=== PATIENT | male | born 1945 | race Caucasian/White ===

== ENCOUNTER 2019-06-23 23:17 | Inpatient (IN) | payer OTHER, MEDICAID ==
[~2019-06-23] VITALS: Ht 167.6 cm; Wt 47.6 kg
[2019-06-23 23:23] VITALS: BP_SYST 140
[2019-06-24 00:08] LABS: EOSINOPHILS % (AUTO) 0.2 % (0.0-4.0); LYMPHOCYTES # (AUTO) 0.9 K/uL (1.0-5.5); MONOCYTES # (AUTO) 0.9 K/uL (0.0-1.0)
[2019-06-24] MEDS ORDERED: LEVOFLOXACIN 500 MG/D5W 100 ML IV ONE (00:15)
[2019-06-24 00:19] LABS: BASOPHILS % (AUTO) 0.2 % (0.0-2.0); HEMATOCRIT 32.1 % (36-54); LYMPHOCYTES % (AUTO) 5.4 % (20.5-51.5); MEAN CORPUSCULAR HEMOGLOBIN 28 pg (27-31); MEAN CORPUSCULAR HGB CONC 31 % (32-36); MEAN CORPUSCULAR VOLUME 90 fL (79.0-98.0); MONOCYTES % (AUTO) 5.5 % (1.7-9.3); NEUTROPHILS # (AUTO) 14.2 K/uL (1.8-7.7); NEUTROPHILS % (AUTO) 88.7 % (40.0-70.0); PLATELET COUNT (AUTO) 468 K/uL (130-430); RED BLOOD CELL COUNT(AUTO) 3.55 MIL/uL (4.2-6.2); RED CELL DISTRIBUTION WIDTH 17.1 % (9.0-15.0)
[2019-06-24 00:21] LABS: ANION GAP 5 (5-15); CALCIUM 9.4 mg/dL (8.4-11.0); CHLORIDE 97 mmol/L (98-107); CREATININE 0.61 mg/dL (0.55-1.30); GLUCOSE 102 mg/dL (70-99); POTASSIUM 4.1 mmol/L (3.5-5.1); SODIUM SERUM 138 mmol/L (136-145); UREA NITROGEN, BLOOD 37 mg/dL (8-21)
[2019-06-24 00:28] LABS: ALANINE AMINOTRANSFERASE 16 U/L (12-78); ASPARTATE AMINOTRANSFERASE 18 U/L (10-37); TOTAL BILIRUBIN 0.3 mg/dL (0.0-1.0)
[2019-06-24 00:37] LABS: BILIRUBIN,URINE NEGATIVE (NEGATIVE); BLOOD, URINE 2+ (NEGATIVE); CLARITY/URINE SL CLOUDY (CLEAR); COLOR,URINE YELLOW (YELLOW); GLUCOSE,URINE NEGATIVE (NEGATIVE); KETONES,URINE NEGATIVE (NEGATIVE); LEUKOCYTE ESTERASE ,URINE 3+ (NEGATIVE); NITRITE, URINE POSITIVE (NEGATIVE); PH,URINE 8.5 (5.0-8.0); PROTEIN URINE 2+ (NEGATIVE)
[2019-06-24 01:01] LABS: BACTERIA,URINE MANY /HPF (None Seen); RBC,URINE 50-80 /HPF (0-3); WBC,URINE 50-80 /HPF (0-3)
[2019-06-24 01:02] LABS: TRIPLE PHOSPHATE CRYSTAL,UR 30-50 /HPF (None Seen)
[2019-06-24] MEDS ORDERED: FERR220S13 GT (02:01)
[2019-06-24] MEDS ORDERED: ASCO500T20 GT (02:02)
[2019-06-24] MEDS ORDERED: COLL100 GT (02:02)
[2019-06-24] MEDS ORDERED: LIP20 PO (02:03)
[2019-06-24] MEDS ORDERED: LANS30CA53 GT (02:04)
[2019-06-24] MEDS ORDERED: MULT-1100 GT (02:07)
[2019-06-24] MEDS ORDERED: CHOL100035 GT (02:09)
[2019-06-24] MEDS ORDERED: ZINC220T4 GT (02:09)
[2019-06-24] MEDS ORDERED: 0.45% NACL 1,000 ML IV ONE (02:15)
[2019-06-24] MEDS ORDERED: ACET-2165 GT ×2 (02:16→02:17)
[2019-06-24] MEDS ORDERED: INSU100V7 SUBCUT (02:22)
[2019-06-24] MEDS: PIPERACILLIN/TAZO 3.375 GM in NS 50 ML IV SCH ×3 (02:55→18:25)
[2019-06-24] MEDS ORDERED: VANCOMYCIN HCL 1 GM/NS PREMIX 250 ML IV ONE (03:00)
[2019-06-24] MEDS ORDERED: PIPERACILLIN/TAZOBACTAM 3.375 GM/VIAL (ZOSYN) IV ONE (03:05)
[2019-06-24] MEDS ORDERED: VANCOMYCIN HCL 1000 MG/VIAL IV ONE (03:31)
[2019-06-24 07:00] VITALS: BP_SYST 107
[2019-06-24 08:41] VITALS: BP_SYST 101
[2019-06-24 10:53] VITALS: BP_SYST 101
[2019-06-24] MEDS ORDERED: FLU VACC TS2019(65UP)/MF59C/PF 45 MCG/0.5 ML SYRINGE I.M. PRN (11:30)
[2019-06-24 12:07] VITALS: BP_SYST 118
[2019-06-24] MEDS: VANCOMYCIN HCL 1 GM/NS PREMIX 250 ML IV SCH (15:24)
[2019-06-24 16:38] VITALS: BP_SYST 114
[2019-06-24] MEDS: 0.45% NACL 1,000 ML IV SCH (19:50)
[2019-06-24] MEDS ORDERED: DEXTROSE 50% JECT 50 ML DISP.SYRIN IVP PRN (20:15)
[2019-06-24] MEDS ORDERED: GLUCOSE 15 GM GEL (in 37.5 GM TUBE) PO PRN (20:15)
[2019-06-24] MEDS ORDERED: ACETAMINOPHEN 325 MG TABLET GT PRN ×2 (20:15)
[2019-06-24] MEDS ORDERED: D5W 1,000 ML IV PRN (20:15)
[2019-06-24 20:35] VITALS: BP_SYST 103
[2019-06-24] MEDS: ASCORBIC ACID 500 MG TABLET GT SCH (20:37)
[2019-06-24] MEDS: INSULIN REGULAR, HUMAN 100 UNITS/ML, 10 ML VIAL (humuLIN R) SUBCUT PRN (20:43)
[2019-06-24] MEDS ORDERED: ATORVASTATIN 20 MG TABLET PO SCH (21:00)
[2019-06-25] MEDS: 0.45% NACL 1,000 ML IV SCH (01:30)
[2019-06-25] MEDS: PIPERACILLIN/TAZO 3.375 GM in NS 50 ML IV SCH ×3 (02:00→18:52)
[2019-06-25] MEDS: VANCOMYCIN HCL 1 GM/NS PREMIX 250 ML IV SCH ×2 (02:25→14:31)
[2019-06-25 02:39] VITALS: BP_SYST 108
[2019-06-25] MEDS: INSULIN REGULAR, HUMAN 100 UNITS/ML, 10 ML VIAL (humuLIN R) SUBCUT PRN ×2 (06:34→21:27)
[2019-06-25 07:15] LABS: BASOPHILS % (AUTO) 0.1 % (0.0-2.0); EOSINOPHILS % (AUTO) 0.2 % (0.0-4.0); HEMATOCRIT 26.5 % (36-54); HEMOGLOBIN 8.4 g/dL (14.0-18.0); LYMPHOCYTES # (AUTO) 0.8 K/uL (1.0-5.5); LYMPHOCYTES % (AUTO) 6.9 % (20.5-51.5); MEAN CORPUSCULAR HEMOGLOBIN 29 pg (27-31); MEAN CORPUSCULAR HGB CONC 32 % (32-36); MEAN CORPUSCULAR VOLUME 90 fL (79.0-98.0); MONOCYTES # (AUTO) 0.8 K/uL (0.0-1.0); MONOCYTES % (AUTO) 6.7 % (1.7-9.3); NEUTROPHILS # (AUTO) 10.4 K/uL (1.8-7.7); NEUTROPHILS % (AUTO) 86.1 % (40.0-70.0); PLATELET COUNT (AUTO) 385 K/uL (130-430); RED BLOOD CELL COUNT(AUTO) 2.95 MIL/uL (4.2-6.2); RED CELL DISTRIBUTION WIDTH 17.2 % (9.0-15.0)
[2019-06-25 07:39] LABS: ALANINE AMINOTRANSFERASE 15 U/L (12-78); ALBUMIN 1.7 g/dL (3.4-4.8); ANION GAP 5 (5-15); ASPARTATE AMINOTRANSFERASE 13 U/L (10-37); CALCIUM 8.9 mg/dL (8.4-11.0); CHLORIDE 96 mmol/L (98-107); CREATININE 0.65 mg/dL (0.55-1.30); GLUCOSE 108 mg/dL (70-99); POTASSIUM 3.5 mmol/L (3.5-5.1); SODIUM SERUM 134 mmol/L (136-145); TOTAL BILIRUBIN 0.3 mg/dL (0.0-1.0); UREA NITROGEN, BLOOD 27 mg/dL (8-21)
[2019-06-25 08:12] VITALS: BP_SYST 105
[2019-06-25] MEDS: CHOLECALCIFEROL (VITAMIN D3) 2,000 UNIT TABLET GT SCH ×2 (08:47→09:00)
[2019-06-25] MEDS: MULTIVITS,CA,MINERALS/IRON/FA 1 TABLET GT SCH ×2 (08:47→09:00)
[2019-06-25] MEDS: ASCORBIC ACID 500 MG TABLET GT SCH ×3 (08:47→21:25)
[2019-06-25] MEDS: LANSOPRAZOLE 30 MG CAPSULE.DR GT SCH ×2 (08:48→09:00)
[2019-06-25] MEDS: FERROUS SULFATE 300 MG/5 ML UDC GT SCH ×2 (08:48→09:00)
[2019-06-25] MEDS: DOCUSATE SODIUM 100 MG/10 ML UDC GT SCH ×2 (08:48→09:00)
[2019-06-25 12:44] VITALS: BP_SYST 93
[2019-06-25] MEDS: BALSAM PERU/CASTOR OIL 60 GM OINT...G. TP SCH (14:08)
[2019-06-25] MEDS ORDERED: GASTROGRAFIN 120 ML ONE (14:37)
[2019-06-25] MEDS ORDERED: GLUCOSE 15 GM GEL (in 37.5 GM TUBE) GT PRN (15:12)
[2019-06-25] MEDS ORDERED: ACETAMINOPHEN 650 MG/20.3 ML UDC GT PRN (15:12)
[2019-06-25] MEDS: NACL 0.9% 1,000 ML IV SCH (15:44)
[2019-06-25 16:00] VITALS: BP_SYST 121
[2019-06-25 18:38] LABS: BILIRUBIN,URINE NEGATIVE (NEGATIVE); BLOOD, URINE 3+ (NEGATIVE); COLOR,URINE YELLOW (YELLOW); GLUCOSE,URINE NEGATIVE (NEGATIVE); KETONES,URINE NEGATIVE (NEGATIVE); LEUKOCYTE ESTERASE ,URINE 1+ (NEGATIVE); NITRITE, URINE POSITIVE (NEGATIVE); PH,URINE 8.5 (5.0-8.0); PROTEIN URINE 1+ (NEGATIVE)
[2019-06-25 18:58] LABS: CLARITY/URINE HAZY (CLEAR)
[2019-06-25 19:04] LABS: BACTERIA,URINE MODERATE /HPF (None Seen); MUCUS,URINE None Seen /LPF (None Seen); RBC,URINE 20-50 /HPF (0-3)
[2019-06-25] MEDS ORDERED: MUPIROCIN 1 GM OIN.PF.APP NS SCH (21:00)
[2019-06-25 21:24] VITALS: BP_SYST 108
[2019-06-25] MEDS: ATORVASTATIN 20 MG TABLET GT SCH (21:25)
[2019-06-26] MEDS: PIPERACILLIN/TAZO 3.375 GM in NS 50 ML IV SCH ×3 (02:01→18:40)
[2019-06-26] MEDS: VANCOMYCIN HCL 1 GM/NS PREMIX 250 ML IV SCH (02:28)
[2019-06-26] MEDS: INSULIN REGULAR, HUMAN 100 UNITS/ML, 10 ML VIAL (humuLIN R) SUBCUT PRN (06:18)
[2019-06-26 07:10] LABS: BASOPHILS % (AUTO) 0.1 % (0.0-2.0); EOSINOPHILS # (AUTO) 0.1 K/uL (0.0-0.4); EOSINOPHILS % (AUTO) 0.5 % (0.0-4.0); HEMATOCRIT 26.5 % (36-54); HEMOGLOBIN 8.4 g/dL (14.0-18.0); LYMPHOCYTES % (AUTO) 8.5 % (20.5-51.5); MEAN CORPUSCULAR HEMOGLOBIN 28 pg (27-31); MEAN CORPUSCULAR HGB CONC 32 % (32-36); MEAN CORPUSCULAR VOLUME 90 fL (79.0-98.0); MONOCYTES # (AUTO) 0.7 K/uL (0.0-1.0); NEUTROPHILS # (AUTO) 10.3 K/uL (1.8-7.7); NEUTROPHILS % (AUTO) 84.9 % (40.0-70.0); PLATELET COUNT (AUTO) 435 K/uL (130-430); RED BLOOD CELL COUNT(AUTO) 2.96 MIL/uL (4.2-6.2); WHITE BLOOD COUNT (AUTO) 12.2 K/uL (4.8-10.8)
[2019-06-26 07:19] LABS: ALANINE AMINOTRANSFERASE 13 U/L (12-78); ALBUMIN 1.8 g/dL (3.4-4.8); ANION GAP 5 (5-15); ASPARTATE AMINOTRANSFERASE 12 U/L (10-37); CALCIUM 8.8 mg/dL (8.4-11.0); CHLORIDE 102 mmol/L (98-107); GLUCOSE 125 mg/dL (70-99); POTASSIUM 3.5 mmol/L (3.5-5.1); SODIUM SERUM 138 mmol/L (136-145); TOTAL BILIRUBIN 0.3 mg/dL (0.0-1.0); UREA NITROGEN, BLOOD 25 mg/dL (8-21)
[2019-06-26 08:06] VITALS: BP_SYST 112
[2019-06-26] MEDS: LANSOPRAZOLE 30 MG CAPSULE.DR GT SCH (08:37)
[2019-06-26] MEDS: DOCUSATE SODIUM 100 MG/10 ML UDC GT SCH (08:37)
[2019-06-26] MEDS: FERROUS SULFATE 300 MG/5 ML UDC GT SCH (08:37)
[2019-06-26] MEDS: MULTIVITS,CA,MINERALS/IRON/FA 1 TABLET GT SCH (08:37)
[2019-06-26] MEDS: ASCORBIC ACID 500 MG TABLET GT SCH ×2 (08:37→20:14)
[2019-06-26] MEDS: MUPIROCIN 2% TOPICAL OINTMENT 22 GM NS SCH ×2 (08:38→20:15)
[2019-06-26] MEDS: CHOLECALCIFEROL (VITAMIN D3) 2,000 UNIT TABLET GT SCH (08:38)
[2019-06-26] MEDS: BALSAM PERU/CASTOR OIL 60 GM OINT...G. TP SCH (08:39)
[2019-06-26 11:17] VITALS: BP_SYST 125
[2019-06-26] MEDS: NACL 0.9% 1,000 ML IV SCH ×2 (15:15→15:54)
[2019-06-26 15:25] VITALS: BP_SYST 134
[2019-06-26 20:00] VITALS: BP_SYST 130
[2019-06-26] MEDS: ATORVASTATIN 20 MG TABLET GT SCH (20:14)
[2019-06-27 00:37] VITALS: BP_SYST 135
[2019-06-27] MEDS: PIPERACILLIN/TAZO 3.375 GM in NS 50 ML IV SCH ×3 (03:00→18:16)
[2019-06-27 04:00] VITALS: BP_SYST 128
[2019-06-27] MEDS ORDERED: VANCOMYCIN HCL 750 MG in NS 250 ML IV SCH (06:00)
[2019-06-27 08:00] VITALS: BP_SYST 114
[2019-06-27] MEDS ORDERED: POLYETHYLENE GLYCOL 3350, 17 GM/ POWD.PACK GT PRN (08:00)
[2019-06-27] MEDS ORDERED: GLYCERIN 1 SUPP.RECT (ADULT) RC ONE (08:00)
[2019-06-27] MEDS ORDERED: DOCUSATE SODIUM 100 MG/10 ML UDC GT PRN (08:00)
[2019-06-27] MEDS: ASCORBIC ACID 500 MG TABLET GT SCH ×2 (09:22→22:17)
[2019-06-27] MEDS: FERROUS SULFATE 300 MG/5 ML UDC GT SCH (09:22)
[2019-06-27] MEDS: LANSOPRAZOLE 30 MG CAPSULE.DR GT SCH (09:22)
[2019-06-27] MEDS: CHOLECALCIFEROL (VITAMIN D3) 2,000 UNIT TABLET GT SCH (09:22)
[2019-06-27] MEDS: DOCUSATE SODIUM 100 MG/10 ML UDC GT SCH (09:22)
[2019-06-27] MEDS: MULTIVITS,CA,MINERALS/IRON/FA 1 TABLET GT SCH (09:22)
[2019-06-27] MEDS: MUPIROCIN 2% TOPICAL OINTMENT 22 GM NS SCH ×2 (09:23→22:17)
[2019-06-27] MEDS: BALSAM PERU/CASTOR OIL 60 GM OINT...G. TP SCH (09:23)
[2019-06-27] MEDS: VANCOMYCIN HCL 750 MG in NS 250 ML IV SCH ×2 (09:23→22:25)
[2019-06-27 12:22] VITALS: BP_SYST 140
[2019-06-27 15:07] LABS: HEPATITIS B CORE AB, TOTAL Negative (Negative); HEPATITIS B SURFACE AG Negative (Negative); HEPATITIS C VIRUS AB <0.1 s/co ratio (0.0-0.9)
[2019-06-27 16:28] VITALS: BP_SYST 127
[2019-06-27 20:00] VITALS: BP_SYST 125
[2019-06-27] MEDS: ATORVASTATIN 20 MG TABLET GT SCH (22:18)
[2019-06-28 00:02] VITALS: BP_SYST 122
[2019-06-28] MEDS: PIPERACILLIN/TAZO 3.375 GM in NS 50 ML IV SCH ×3 (02:55→18:36)
[2019-06-28 05:40] VITALS: BP_SYST 123
[2019-06-28 06:54] LABS: ALANINE AMINOTRANSFERASE 15 U/L (12-78); ALBUMIN 1.8 g/dL (3.4-4.8); ANION GAP 6 (5-15); ASPARTATE AMINOTRANSFERASE 16 U/L (10-37); CALCIUM 8.7 mg/dL (8.4-11.0); CHLORIDE 116 mmol/L (98-107); GLUCOSE 108 mg/dL (70-99); POTASSIUM 3.7 mmol/L (3.5-5.1); SODIUM SERUM 154 mmol/L (136-145); TOTAL BILIRUBIN 0.2 mg/dL (0.0-1.0); UREA NITROGEN, BLOOD 34 mg/dL (8-21)
[2019-06-28 07:11] LABS: BASOPHILS % (AUTO) 0.3 % (0.0-2.0); EOSINOPHILS # (AUTO) 0.1 K/uL (0.0-0.4); EOSINOPHILS % (AUTO) 0.9 % (0.0-4.0); HEMATOCRIT 27.3 % (36-54); HEMOGLOBIN 8.5 g/dL (14.0-18.0); LYMPHOCYTES # (AUTO) 1.3 K/uL (1.0-5.5); LYMPHOCYTES % (AUTO) 8.6 % (20.5-51.5); MEAN CORPUSCULAR HEMOGLOBIN 29 pg (27-31); MEAN CORPUSCULAR HGB CONC 31 % (32-36); MEAN CORPUSCULAR VOLUME 92 fL (79.0-98.0); MONOCYTES # (AUTO) 0.8 K/uL (0.0-1.0); MONOCYTES % (AUTO) 5.4 % (1.7-9.3); NEUTROPHILS # (AUTO) 12.9 K/uL (1.8-7.7); NEUTROPHILS % (AUTO) 84.8 % (40.0-70.0); PLATELET COUNT (AUTO) 413 K/uL (130-430); RED BLOOD CELL COUNT(AUTO) 2.98 MIL/uL (4.2-6.2); RED CELL DISTRIBUTION WIDTH 17.5 % (9.0-15.0); WHITE BLOOD COUNT (AUTO) 15.2 K/uL (4.8-10.8)
[2019-06-28 08:00] VITALS: BP_SYST 112
[2019-06-28] MEDS: LANSOPRAZOLE 30 MG CAPSULE.DR GT SCH (08:56)
[2019-06-28] MEDS: DOCUSATE SODIUM 100 MG/10 ML UDC GT SCH (08:56)
[2019-06-28] MEDS: FERROUS SULFATE 300 MG/5 ML UDC GT SCH (08:56)
[2019-06-28] MEDS: CHOLECALCIFEROL (VITAMIN D3) 2,000 UNIT TABLET GT SCH (08:57)
[2019-06-28] MEDS: ASCORBIC ACID 500 MG TABLET GT SCH ×2 (08:57→22:27)
[2019-06-28] MEDS: MULTIVITS,CA,MINERALS/IRON/FA 1 TABLET GT SCH (08:57)
[2019-06-28] MEDS: D5W 1,000 ML IV SCH (08:59)
[2019-06-28] MEDS: BALSAM PERU/CASTOR OIL 60 GM OINT...G. TP SCH (09:23)
[2019-06-28] MEDS: MUPIROCIN 2% TOPICAL OINTMENT 22 GM NS SCH ×2 (09:24→22:28)
[2019-06-28] MEDS: VANCOMYCIN HCL 750 MG in NS 250 ML IV SCH ×2 (09:24→22:28)
[2019-06-28 12:31] VITALS: BP_SYST 154
[2019-06-28 16:41] VITALS: BP_SYST 147
[2019-06-28 20:30] VITALS: BP_SYST 104
[2019-06-28] MEDS: ATORVASTATIN 20 MG TABLET GT SCH (22:27)
[2019-06-29 01:26] VITALS: BP_SYST 147
[2019-06-29] MEDS: PIPERACILLIN/TAZO 3.375 GM in NS 50 ML IV SCH ×3 (03:27→18:04)
[2019-06-29] MEDS ORDERED: AMIKACIN SULFATE 1,000 MG in D5W 100 ML IV ONE (04:00)
[2019-06-29] MEDS ORDERED: AMIKACIN SULFATE 500 MG/2 ML VIAL ONE (06:14)
[2019-06-29] MEDS: D5W 1,000 ML IV SCH (06:30)
[2019-06-29 08:07] LABS: BASOPHILS % (AUTO) 0.1 % (0.0-2.0); EOSINOPHILS # (AUTO) 0.2 K/uL (0.0-0.4); EOSINOPHILS % (AUTO) 1.4 % (0.0-4.0); HEMATOCRIT 27.7 % (36-54); HEMOGLOBIN 8.5 g/dL (14.0-18.0); LYMPHOCYTES # (AUTO) 1.2 K/uL (1.0-5.5); LYMPHOCYTES % (AUTO) 9.3 % (20.5-51.5); MEAN CORPUSCULAR HEMOGLOBIN 28 pg (27-31); MEAN CORPUSCULAR HGB CONC 31 % (32-36); MEAN CORPUSCULAR VOLUME 93 fL (79.0-98.0); MONOCYTES # (AUTO) 0.5 K/uL (0.0-1.0); MONOCYTES % (AUTO) 4.3 % (1.7-9.3); NEUTROPHILS # (AUTO) 10.7 K/uL (1.8-7.7); NEUTROPHILS % (AUTO) 84.9 % (40.0-70.0); PLATELET COUNT (AUTO) 401 K/uL (130-430); RED BLOOD CELL COUNT(AUTO) 2.98 MIL/uL (4.2-6.2); RED CELL DISTRIBUTION WIDTH 17.7 % (9.0-15.0); WHITE BLOOD COUNT (AUTO) 12.6 K/uL (4.8-10.8)
[2019-06-29 08:13] VITALS: BP_SYST 125
[2019-06-29 08:26] LABS: ANION GAP 5 (5-15); CALCIUM 8.9 mg/dL (8.4-11.0); CHLORIDE 115 mmol/L (98-107); CREATININE 0.79 mg/dL (0.55-1.30); GLUCOSE 134 mg/dL (70-99); POTASSIUM 3.9 mmol/L (3.5-5.1); SODIUM SERUM 148 mmol/L (136-145); UREA NITROGEN, BLOOD 40 mg/dL (8-21); VANCOMYCIN,TROUGH 23.8 ug/mL (5.0-10.0)
[2019-06-29] MEDS: DOCUSATE SODIUM 100 MG/10 ML UDC GT SCH (09:33)
[2019-06-29] MEDS: FERROUS SULFATE 300 MG/5 ML UDC GT SCH (09:33)
[2019-06-29] MEDS: ASCORBIC ACID 500 MG TABLET GT SCH ×2 (09:33→21:04)
[2019-06-29] MEDS: VANCOMYCIN HCL 750 MG in NS 250 ML IV SCH ×2 (09:33→21:03)
[2019-06-29] MEDS: MULTIVITS,CA,MINERALS/IRON/FA 1 TABLET GT SCH (09:33)
[2019-06-29] MEDS: MUPIROCIN 2% TOPICAL OINTMENT 22 GM NS SCH ×2 (09:34→21:05)
[2019-06-29] MEDS: LANSOPRAZOLE 30 MG CAPSULE.DR GT SCH (09:34)
[2019-06-29] MEDS: CHOLECALCIFEROL (VITAMIN D3) 2,000 UNIT TABLET GT SCH (09:34)
[2019-06-29 12:15] VITALS: BP_SYST 117
[2019-06-29] MEDS: BALSAM PERU/CASTOR OIL 60 GM OINT...G. TP SCH (15:30)
[2019-06-29 17:02] VITALS: BP_SYST 140
[2019-06-29 20:00] VITALS: BP_SYST 120
[2019-06-29] MEDS: ATORVASTATIN 20 MG TABLET GT SCH (21:03)
[2019-06-30 00:29] VITALS: BP_SYST 113
[2019-06-30] MEDS: D5W 1,000 ML IV SCH ×3 (00:41→17:50)
[2019-06-30 06:31] LABS: BASOPHILS # (AUTO) 0.1 K/uL (0.0-0.2); BASOPHILS % (AUTO) 0.5 % (0.0-2.0); EOSINOPHILS # (AUTO) 0.2 K/uL (0.0-0.4); EOSINOPHILS % (AUTO) 1.6 % (0.0-4.0); HEMATOCRIT 27.4 % (36-54); HEMOGLOBIN 8.5 g/dL (14.0-18.0); LYMPHOCYTES # (AUTO) 1.2 K/uL (1.0-5.5); LYMPHOCYTES % (AUTO) 8.7 % (20.5-51.5); MEAN CORPUSCULAR HEMOGLOBIN 29 pg (27-31); MEAN CORPUSCULAR HGB CONC 31 % (32-36); MEAN CORPUSCULAR VOLUME 92 fL (79.0-98.0); MONOCYTES # (AUTO) 0.6 K/uL (0.0-1.0); MONOCYTES % (AUTO) 4.1 % (1.7-9.3); NEUTROPHILS # (AUTO) 11.5 K/uL (1.8-7.7); NEUTROPHILS % (AUTO) 85.1 % (40.0-70.0); PLATELET COUNT (AUTO) 408 K/uL (130-430); RED BLOOD CELL COUNT(AUTO) 2.98 MIL/uL (4.2-6.2); RED CELL DISTRIBUTION WIDTH 17.4 % (9.0-15.0); WHITE BLOOD COUNT (AUTO) 13.5 K/uL (4.8-10.8)
[2019-06-30 06:59] LABS: ALANINE AMINOTRANSFERASE 19 U/L (12-78); ALBUMIN 1.9 g/dL (3.4-4.8); ANION GAP 7 (5-15); ASPARTATE AMINOTRANSFERASE 22 U/L (10-37); CALCIUM 8.5 mg/dL (8.4-11.0); CHLORIDE 114 mmol/L (98-107); CREATININE 0.71 mg/dL (0.55-1.30); GLUCOSE 109 mg/dL (70-99); POTASSIUM 3.8 mmol/L (3.5-5.1); SODIUM SERUM 151 mmol/L (136-145); TOTAL BILIRUBIN 0.3 mg/dL (0.0-1.0); UREA NITROGEN, BLOOD 41 mg/dL (8-21)
[2019-06-30] MEDS: AMIKACIN SULFATE 350 MG in D5W 100 ML IV SCH ×2 (08:57→20:08)
[2019-06-30] MEDS: FERROUS SULFATE 300 MG/5 ML UDC GT SCH (09:34)
[2019-06-30] MEDS: LANSOPRAZOLE 30 MG CAPSULE.DR GT SCH (09:34)
[2019-06-30] MEDS: DOCUSATE SODIUM 100 MG/10 ML UDC GT SCH (09:34)
[2019-06-30] MEDS: MULTIVITS,CA,MINERALS/IRON/FA 1 TABLET GT SCH (09:34)
[2019-06-30] MEDS: ASCORBIC ACID 500 MG TABLET GT SCH ×2 (09:34→20:12)
[2019-06-30 09:35] VITALS: BP_SYST 115
[2019-06-30] MEDS: CHOLECALCIFEROL (VITAMIN D3) 2,000 UNIT TABLET GT SCH (09:35)
[2019-06-30] MEDS: MUPIROCIN 2% TOPICAL OINTMENT 22 GM NS SCH ×2 (11:39→20:13)
[2019-06-30 12:39] VITALS: BP_SYST 103
[2019-06-30] MEDS: BALSAM PERU/CASTOR OIL 60 GM OINT...G. TP SCH (15:58)
[2019-06-30 16:43] VITALS: BP_SYST 109
[2019-06-30] MEDS: VANCOMYCIN HCL 500 MG in NS 100 ML IV SCH (17:41)
[2019-06-30 19:30] VITALS: BP_SYST 126
[2019-06-30] MEDS: ATORVASTATIN 20 MG TABLET GT SCH (20:12)
[2019-07-01] MEDS: D5W 1,000 ML IV SCH ×2 (02:22→17:36)
[2019-07-01 03:37] VITALS: BP_SYST 120
[2019-07-01] MEDS: VANCOMYCIN HCL 500 MG in NS 100 ML IV SCH ×2 (05:56→17:16)
[2019-07-01 06:25] LABS: BASOPHILS # (AUTO) 0.1 K/uL (0.0-0.2); BASOPHILS % (AUTO) 0.6 % (0.0-2.0); EOSINOPHILS # (AUTO) 0.2 K/uL (0.0-0.4); EOSINOPHILS % (AUTO) 2.1 % (0.0-4.0); HEMATOCRIT 24.9 % (36-54); HEMOGLOBIN 7.8 g/dL (14.0-18.0); LYMPHOCYTES # (AUTO) 1.2 K/uL (1.0-5.5); LYMPHOCYTES % (AUTO) 10.4 % (20.5-51.5); MEAN CORPUSCULAR HEMOGLOBIN 28 pg (27-31); MEAN CORPUSCULAR HGB CONC 31 % (32-36); MEAN CORPUSCULAR VOLUME 90 fL (79.0-98.0); MONOCYTES # (AUTO) 0.4 K/uL (0.0-1.0); NEUTROPHILS # (AUTO) 9.2 K/uL (1.8-7.7); NEUTROPHILS % (AUTO) 82.9 % (40.0-70.0); PLATELET COUNT (AUTO) 338 K/uL (130-430); RED BLOOD CELL COUNT(AUTO) 2.76 MIL/uL (4.2-6.2); RED CELL DISTRIBUTION WIDTH 17.2 % (9.0-15.0); WHITE BLOOD COUNT (AUTO) 11.1 K/uL (4.8-10.8)
[2019-07-01 06:33] LABS: ANION GAP 4 (5-15); CALCIUM 8.6 mg/dL (8.4-11.0); CHLORIDE 108 mmol/L (98-107); CREATININE 0.62 mg/dL (0.55-1.30); GLUCOSE 114 mg/dL (70-99); POTASSIUM 3.7 mmol/L (3.5-5.1); SODIUM SERUM 139 mmol/L (136-145); UREA NITROGEN, BLOOD 42 mg/dL (8-21)
[2019-07-01 08:03] VITALS: BP_SYST 104
[2019-07-01] MEDS: AMIKACIN SULFATE 350 MG in D5W 100 ML IV SCH ×2 (08:22→20:33)
[2019-07-01] MEDS: MULTIVITS,CA,MINERALS/IRON/FA 1 TABLET GT SCH (08:22)
[2019-07-01] MEDS: ASCORBIC ACID 500 MG TABLET GT SCH ×2 (08:22→20:33)
[2019-07-01] MEDS: LANSOPRAZOLE 30 MG CAPSULE.DR GT SCH (08:23)
[2019-07-01] MEDS: FERROUS SULFATE 300 MG/5 ML UDC GT SCH (08:23)
[2019-07-01] MEDS: DOCUSATE SODIUM 100 MG/10 ML UDC GT SCH (08:23)
[2019-07-01] MEDS: CHOLECALCIFEROL (VITAMIN D3) 2,000 UNIT TABLET GT SCH (08:23)
[2019-07-01] MEDS: BALSAM PERU/CASTOR OIL 60 GM OINT...G. TP SCH (08:24)
[2019-07-01 12:37] VITALS: BP_SYST 109
[2019-07-01 17:34] VITALS: BP_SYST 105
[2019-07-01 19:25] VITALS: BP_SYST 126
[2019-07-01 19:50] VITALS: BP_SYST 126
[2019-07-01] MEDS: ATORVASTATIN 20 MG TABLET GT SCH (20:33)
[2019-07-02] MEDS: D5W 1,000 ML IV SCH (02:34)
[2019-07-02 03:32] VITALS: BP_SYST 120
[2019-07-02] MEDS: VANCOMYCIN HCL 500 MG in NS 100 ML IV SCH ×2 (06:23→17:30)
[2019-07-02 07:17] LABS: BASOPHILS # (AUTO) 0.1 K/uL (0.0-0.2); BASOPHILS % (AUTO) 0.8 % (0.0-2.0); EOSINOPHILS # (AUTO) 0.2 K/uL (0.0-0.4); EOSINOPHILS % (AUTO) 2.5 % (0.0-4.0); HEMATOCRIT 25.1 % (36-54); HEMOGLOBIN 7.9 g/dL (14.0-18.0); LYMPHOCYTES # (AUTO) 1.1 K/uL (1.0-5.5); LYMPHOCYTES % (AUTO) 12.1 % (20.5-51.5); MEAN CORPUSCULAR HEMOGLOBIN 28 pg (27-31); MEAN CORPUSCULAR HGB CONC 32 % (32-36); MEAN CORPUSCULAR VOLUME 90 fL (79.0-98.0); MONOCYTES # (AUTO) 0.6 K/uL (0.0-1.0); NEUTROPHILS # (AUTO) 7.3 K/uL (1.8-7.7); NEUTROPHILS % (AUTO) 78.6 % (40.0-70.0); PLATELET COUNT (AUTO) 321 K/uL (130-430); RED BLOOD CELL COUNT(AUTO) 2.79 MIL/uL (4.2-6.2); WHITE BLOOD COUNT (AUTO) 9.3 K/uL (4.8-10.8)
[2019-07-02 07:43] LABS: ALANINE AMINOTRANSFERASE 27 U/L (12-78); ALBUMIN 1.7 g/dL (3.4-4.8); ANION GAP 7 (5-15); ASPARTATE AMINOTRANSFERASE 22 U/L (10-37); CALCIUM 8.3 mg/dL (8.4-11.0); CHLORIDE 106 mmol/L (98-107); GLUCOSE 100 mg/dL (70-99); POTASSIUM 3.9 mmol/L (3.5-5.1); SODIUM SERUM 141 mmol/L (136-145); TOTAL BILIRUBIN 0.2 mg/dL (0.0-1.0); UREA NITROGEN, BLOOD 42 mg/dL (8-21)
[2019-07-02 08:00] VITALS: BP_SYST 120
[2019-07-02] MEDS: MULTIVITS,CA,MINERALS/IRON/FA 1 TABLET GT SCH (08:40)
[2019-07-02] MEDS: ASCORBIC ACID 500 MG TABLET GT SCH ×2 (08:40→21:37)
[2019-07-02] MEDS: LANSOPRAZOLE 30 MG CAPSULE.DR GT SCH (08:41)
[2019-07-02] MEDS: DOCUSATE SODIUM 100 MG/10 ML UDC GT SCH (08:41)
[2019-07-02] MEDS: CHOLECALCIFEROL (VITAMIN D3) 2,000 UNIT TABLET GT SCH (08:41)
[2019-07-02] MEDS: FERROUS SULFATE 300 MG/5 ML UDC GT SCH (08:42)
[2019-07-02] MEDS: AMIKACIN SULFATE 350 MG in D5W 100 ML IV SCH ×2 (08:42→21:34)
[2019-07-02 12:00] VITALS: BP_SYST 114
[2019-07-02 12:13] LABS: PROTHROMBIN TIME 10.2 SECS (9.5-12.5)
[2019-07-02] MEDS: BALSAM PERU/CASTOR OIL 60 GM OINT...G. TP SCH (15:00)
[2019-07-02 16:53] VITALS: BP_SYST 100
[2019-07-02 20:00] VITALS: BP_SYST 125
[2019-07-02] MEDS: ATORVASTATIN 20 MG TABLET GT SCH (21:37)
[2019-07-03 00:38] VITALS: BP_SYST 126
[2019-07-03] MEDS: VANCOMYCIN HCL 500 MG in NS 100 ML IV SCH ×2 (05:54→18:00)
[2019-07-03 08:00] VITALS: BP_SYST 106
[2019-07-03 08:49] VITALS: BP_SYST 126
[2019-07-03] MEDS: DOCUSATE SODIUM 100 MG/10 ML UDC GT SCH (09:55)
[2019-07-03] MEDS: LANSOPRAZOLE 30 MG CAPSULE.DR GT SCH (09:55)
[2019-07-03] MEDS: FERROUS SULFATE 300 MG/5 ML UDC GT SCH (09:55)
[2019-07-03] MEDS: ASCORBIC ACID 500 MG TABLET GT SCH ×2 (09:55→21:47)
[2019-07-03] MEDS: AMIKACIN SULFATE 350 MG in D5W 100 ML IV SCH ×2 (09:55→20:00)
[2019-07-03] MEDS: MULTIVITS,CA,MINERALS/IRON/FA 1 TABLET GT SCH (09:55)
[2019-07-03] MEDS: CHOLECALCIFEROL (VITAMIN D3) 2,000 UNIT TABLET GT SCH (09:56)
[2019-07-03] MEDS: BALSAM PERU/CASTOR OIL 60 GM OINT...G. TP SCH (09:56)
[2019-07-03 12:22] VITALS: BP_SYST 127
[2019-07-03 16:10] VITALS: BP_SYST 112
[2019-07-03] MEDS: D5W 1,000 ML IV SCH (17:43)
[2019-07-03] MEDS ORDERED: VANCOMYCIN HCL 500 MG/VIAL IV ONE (20:35)
[2019-07-03] MEDS: ATORVASTATIN 20 MG TABLET GT SCH (21:47)
[2019-07-03] MEDS ORDERED: AMIKACIN SULFATE 500 MG/2 ML VIAL ONE (22:43)
[2019-07-04 00:37] VITALS: BP_SYST 133
[2019-07-04] MEDS: VANCOMYCIN HCL 500 MG in NS 100 ML IV SCH ×2 (06:04→17:47)
[2019-07-04] MEDS: INSULIN REGULAR, HUMAN 100 UNITS/ML, 10 ML VIAL (humuLIN R) SUBCUT PRN (06:08)
[2019-07-04 07:10] LABS: BASOPHILS # (AUTO) 0.1 K/uL (0.0-0.2); BASOPHILS % (AUTO) 0.9 % (0.0-2.0); EOSINOPHILS # (AUTO) 0.2 K/uL (0.0-0.4); EOSINOPHILS % (AUTO) 2.2 % (0.0-4.0); HEMATOCRIT 23.8 % (36-54); HEMOGLOBIN 7.7 g/dL (14.0-18.0); LYMPHOCYTES # (AUTO) 0.9 K/uL (1.0-5.5); LYMPHOCYTES % (AUTO) 11.5 % (20.5-51.5); MEAN CORPUSCULAR HEMOGLOBIN 29 pg (27-31); MEAN CORPUSCULAR HGB CONC 32 % (32-36); MEAN CORPUSCULAR VOLUME 90 fL (79.0-98.0); MONOCYTES # (AUTO) 0.5 K/uL (0.0-1.0); MONOCYTES % (AUTO) 6.6 % (1.7-9.3); NEUTROPHILS # (AUTO) 5.9 K/uL (1.8-7.7); NEUTROPHILS % (AUTO) 78.8 % (40.0-70.0); PLATELET COUNT (AUTO) 321 K/uL (130-430); RED BLOOD CELL COUNT(AUTO) 2.66 MIL/uL (4.2-6.2); RED CELL DISTRIBUTION WIDTH 17.3 % (9.0-15.0); WHITE BLOOD COUNT (AUTO) 7.5 K/uL (4.8-10.8)
[2019-07-04 07:41] LABS: ALANINE AMINOTRANSFERASE 23 U/L (12-78); ALBUMIN 1.7 g/dL (3.4-4.8); ANION GAP 6 (5-15); ASPARTATE AMINOTRANSFERASE 23 U/L (10-37); CALCIUM 8.4 mg/dL (8.4-11.0); CHLORIDE 103 mmol/L (98-107); CREATININE 0.63 mg/dL (0.55-1.30); GLUCOSE 101 mg/dL (70-99); POTASSIUM 4.2 mmol/L (3.5-5.1); SODIUM SERUM 138 mmol/L (136-145); TOTAL BILIRUBIN 0.2 mg/dL (0.0-1.0); UREA NITROGEN, BLOOD 30 mg/dL (8-21)
[2019-07-04 08:21] VITALS: BP_SYST 113
[2019-07-04] MEDS: DOCUSATE SODIUM 100 MG/10 ML UDC GT SCH (10:27)
[2019-07-04] MEDS: FERROUS SULFATE 300 MG/5 ML UDC GT SCH (10:27)
[2019-07-04] MEDS: LANSOPRAZOLE 30 MG CAPSULE.DR GT SCH (10:28)
[2019-07-04] MEDS: CHOLECALCIFEROL (VITAMIN D3) 2,000 UNIT TABLET GT SCH (10:28)
[2019-07-04] MEDS: MULTIVITS,CA,MINERALS/IRON/FA 1 TABLET GT SCH (10:28)
[2019-07-04] MEDS: ASCORBIC ACID 500 MG TABLET GT SCH ×2 (10:28→20:17)
[2019-07-04] MEDS: AMIKACIN SULFATE 350 MG in D5W 100 ML IV SCH ×2 (10:29→20:17)
[2019-07-04] MEDS: BALSAM PERU/CASTOR OIL 60 GM OINT...G. TP SCH (10:33)
[2019-07-04 16:30] VITALS: BP_SYST 109
[2019-07-04] MEDS: D5W 1,000 ML IV SCH (17:58)
[2019-07-04 20:00] VITALS: BP_SYST 103
[2019-07-04] MEDS: ATORVASTATIN 20 MG TABLET GT SCH (20:17)
[2019-07-04 23:24] VITALS: BP_SYST 115
[2019-07-05] MEDS: VANCOMYCIN HCL 500 MG in NS 100 ML IV SCH ×2 (06:04→18:06)
[2019-07-05 08:12] VITALS: BP_SYST 169
[2019-07-05] MEDS: ASCORBIC ACID 500 MG TABLET GT SCH ×2 (09:25→20:53)
[2019-07-05] MEDS: CHOLECALCIFEROL (VITAMIN D3) 2,000 UNIT TABLET GT SCH (09:25)
[2019-07-05] MEDS: FERROUS SULFATE 300 MG/5 ML UDC GT SCH (09:25)
[2019-07-05] MEDS: AMIKACIN SULFATE 350 MG in D5W 100 ML IV SCH ×2 (09:25→20:52)
[2019-07-05] MEDS: LANSOPRAZOLE 30 MG CAPSULE.DR GT SCH (09:26)
[2019-07-05] MEDS: DOCUSATE SODIUM 100 MG/10 ML UDC GT SCH (09:26)
[2019-07-05] MEDS: MULTIVITS,CA,MINERALS/IRON/FA 1 TABLET GT SCH (09:26)
[2019-07-05] MEDS: BALSAM PERU/CASTOR OIL 60 GM OINT...G. TP SCH (09:44)
[2019-07-05 12:00] VITALS: BP_SYST 99
[2019-07-05] MEDS: INSULIN REGULAR, HUMAN 100 UNITS/ML, 10 ML VIAL (humuLIN R) SUBCUT PRN ×2 (13:02→16:40)
[2019-07-05] MEDS: D5W 1,000 ML IV SCH (16:34)
[2019-07-05 16:35] VITALS: BP_SYST 122
[2019-07-05 20:46] VITALS: BP_SYST 120
[2019-07-05] MEDS: ATORVASTATIN 20 MG TABLET GT SCH (20:53)
[2019-07-06 00:21] VITALS: BP_SYST 116
[2019-07-06] MEDS: VANCOMYCIN HCL 500 MG in NS 100 ML IV SCH ×2 (06:20→19:32)
[2019-07-06] MEDS: LANSOPRAZOLE 30 MG CAPSULE.DR GT SCH (09:35)
[2019-07-06] MEDS: FERROUS SULFATE 300 MG/5 ML UDC GT SCH (09:35)
[2019-07-06] MEDS: DOCUSATE SODIUM 100 MG/10 ML UDC GT SCH (09:35)
[2019-07-06] MEDS: MULTIVITS,CA,MINERALS/IRON/FA 1 TABLET GT SCH (09:35)
[2019-07-06] MEDS: ASCORBIC ACID 500 MG TABLET GT SCH ×2 (09:35→21:49)
[2019-07-06] MEDS: CHOLECALCIFEROL (VITAMIN D3) 2,000 UNIT TABLET GT SCH (09:36)
[2019-07-06] MEDS: AMIKACIN SULFATE 350 MG in D5W 100 ML IV SCH ×2 (09:37→21:49)
[2019-07-06] MEDS: BALSAM PERU/CASTOR OIL 60 GM OINT...G. TP SCH (09:38)
[2019-07-06 10:49] VITALS: BP_SYST 128
[2019-07-06 11:14] LABS: HEPATITIS B CORE AB, TOTAL Negative (Negative); HEPATITIS B SURFACE AG Negative (Negative); HEPATITIS C VIRUS AB <0.1 s/co ratio (0.0-0.9)
[2019-07-06 13:18] VITALS: BP_SYST 128
[2019-07-06 14:42] VITALS: BP_SYST 104
[2019-07-06] MEDS: D5W 1,000 ML IV SCH (16:23)
[2019-07-06 16:33] VITALS: BP_SYST 103
[2019-07-06] MEDS: INSULIN REGULAR, HUMAN 100 UNITS/ML, 10 ML VIAL (humuLIN R) SUBCUT PRN (16:45)
[2019-07-06 20:00] VITALS: BP_SYST 100
[2019-07-06] MEDS: ATORVASTATIN 20 MG TABLET GT SCH (21:49)
[2019-07-07 00:30] VITALS: BP_SYST 96
[2019-07-07 08:00] VITALS: BP_SYST 104
[2019-07-07] MEDS: BALSAM PERU/CASTOR OIL 60 GM OINT...G. TP SCH (09:53)
[2019-07-07] MEDS: FERROUS SULFATE 300 MG/5 ML UDC GT SCH (09:53)
[2019-07-07] MEDS: DOCUSATE SODIUM 100 MG/10 ML UDC GT SCH (09:53)
[2019-07-07] MEDS: AMIKACIN SULFATE 350 MG in D5W 100 ML IV SCH ×2 (09:54→21:28)
[2019-07-07] MEDS: MULTIVITS,CA,MINERALS/IRON/FA 1 TABLET GT SCH (09:54)
[2019-07-07] MEDS: CHOLECALCIFEROL (VITAMIN D3) 2,000 UNIT TABLET GT SCH (09:54)
[2019-07-07] MEDS: ASCORBIC ACID 500 MG TABLET GT SCH ×2 (09:54→21:28)
[2019-07-07] MEDS: LANSOPRAZOLE 30 MG CAPSULE.DR GT SCH (09:54)
[2019-07-07] MEDS: VANCOMYCIN HCL 500 MG in NS 100 ML IV SCH ×2 (10:30→18:18)
[2019-07-07] MEDS: MENTHOL/ZINC OXIDE 113 GM OINT. TP PRN (10:35)
[2019-07-07 12:58] VITALS: BP_SYST 140
[2019-07-07] MEDS: D5W 1,000 ML IV SCH (15:06)
[2019-07-07 16:52] VITALS: BP_SYST 127
[2019-07-07 20:00] VITALS: BP_SYST 102
[2019-07-07] MEDS: ATORVASTATIN 20 MG TABLET GT SCH (21:28)
[2019-07-08 01:59] VITALS: BP_SYST 135
[2019-07-08] MEDS: VANCOMYCIN HCL 500 MG in NS 100 ML IV SCH ×2 (05:55→18:00)
[2019-07-08 06:19] LABS: ALANINE AMINOTRANSFERASE 26 U/L (12-78); ALBUMIN 1.9 g/dL (3.4-4.8); ANION GAP 5 (5-15); ASPARTATE AMINOTRANSFERASE 17 U/L (10-37); CALCIUM 8.6 mg/dL (8.4-11.0); CHLORIDE 100 mmol/L (98-107); CREATININE 0.73 mg/dL (0.55-1.30); GLUCOSE 101 mg/dL (70-99); POTASSIUM 3.9 mmol/L (3.5-5.1); SODIUM SERUM 136 mmol/L (136-145); TOTAL BILIRUBIN 0.2 mg/dL (0.0-1.0); UREA NITROGEN, BLOOD 44 mg/dL (8-21)
[2019-07-08 06:50] LABS: BASOPHILS # (AUTO) 0.1 K/uL (0.0-0.2); BASOPHILS % (AUTO) 1.1 % (0.0-2.0); EOSINOPHILS # (AUTO) 0.2 K/uL (0.0-0.4); EOSINOPHILS % (AUTO) 3.6 % (0.0-4.0); HEMATOCRIT 23.2 % (36-54); HEMOGLOBIN 7.5 g/dL (14.0-18.0); LYMPHOCYTES % (AUTO) 17.9 % (20.5-51.5); MEAN CORPUSCULAR HEMOGLOBIN 28 pg (27-31); MEAN CORPUSCULAR HGB CONC 32 % (32-36); MEAN CORPUSCULAR VOLUME 89 fL (79.0-98.0); MONOCYTES # (AUTO) 0.6 K/uL (0.0-1.0); MONOCYTES % (AUTO) 9.5 % (1.7-9.3); NEUTROPHILS % (AUTO) 67.9 % (40.0-70.0); PLATELET COUNT (AUTO) 344 K/uL (130-430); RED BLOOD CELL COUNT(AUTO) 2.62 MIL/uL (4.2-6.2); RED CELL DISTRIBUTION WIDTH 17.8 % (9.0-15.0); WHITE BLOOD COUNT (AUTO) 5.8 K/uL (4.8-10.8)
[2019-07-08] MEDS: AMIKACIN SULFATE 350 MG in D5W 100 ML IV SCH ×2 (09:26→21:20)
[2019-07-08] MEDS: CHOLECALCIFEROL (VITAMIN D3) 2,000 UNIT TABLET GT SCH (09:27)
[2019-07-08] MEDS: MULTIVITS,CA,MINERALS/IRON/FA 1 TABLET GT SCH (09:27)
[2019-07-08] MEDS: LANSOPRAZOLE 30 MG CAPSULE.DR GT SCH (09:27)
[2019-07-08] MEDS: FERROUS SULFATE 300 MG/5 ML UDC GT SCH (09:27)
[2019-07-08] MEDS: ASCORBIC ACID 500 MG TABLET GT SCH ×2 (09:27→21:20)
[2019-07-08] MEDS: DOCUSATE SODIUM 100 MG/10 ML UDC GT SCH (09:27)
[2019-07-08] MEDS: BALSAM PERU/CASTOR OIL 60 GM OINT...G. TP SCH (09:29)
[2019-07-08 12:32] VITALS: BP_SYST 119
[2019-07-08] MEDS: D5W 1,000 ML IV SCH (15:11)
[2019-07-08 16:14] VITALS: BP_SYST 113
[2019-07-08 20:00] VITALS: BP_SYST 115
[2019-07-08] MEDS: ATORVASTATIN 20 MG TABLET GT SCH (21:20)
[2019-07-09] VITALS (8 sets, daily range): BP systolic 111–152
[2019-07-09] MEDS: VANCOMYCIN HCL 500 MG in NS 100 ML IV SCH (05:55)
[2019-07-09] MEDS: AMIKACIN SULFATE 350 MG in D5W 100 ML IV SCH ×2 (08:52→20:58)
[2019-07-09] MEDS: FERROUS SULFATE 300 MG/5 ML UDC GT SCH (08:52)
[2019-07-09] MEDS: DOCUSATE SODIUM 100 MG/10 ML UDC GT SCH (08:53)
[2019-07-09] MEDS: LANSOPRAZOLE 30 MG CAPSULE.DR GT SCH (08:53)
[2019-07-09] MEDS: MULTIVITS,CA,MINERALS/IRON/FA 1 TABLET GT SCH (08:53)
[2019-07-09] MEDS: CHOLECALCIFEROL (VITAMIN D3) 2,000 UNIT TABLET GT SCH (08:53)
[2019-07-09] MEDS: ASCORBIC ACID 500 MG TABLET GT SCH ×2 (08:53→20:57)
[2019-07-09] MEDS: BALSAM PERU/CASTOR OIL 60 GM OINT...G. TP SCH (08:54)
[2019-07-09] MEDS: D5W 1,000 ML IV SCH (15:52)
[2019-07-09] MEDS: ATORVASTATIN 20 MG TABLET GT SCH (20:57)
[2019-07-10 05:59] LABS: BASOPHILS # (AUTO) 0.1 K/uL (0.0-0.2); BASOPHILS % (AUTO) 1.2 % (0.0-2.0); EOSINOPHILS # (AUTO) 0.2 K/uL (0.0-0.4); EOSINOPHILS % (AUTO) 3.5 % (0.0-4.0); HEMATOCRIT 24.2 % (36-54); HEMOGLOBIN 7.7 g/dL (14.0-18.0); LYMPHOCYTES # (AUTO) 0.9 K/uL (1.0-5.5); LYMPHOCYTES % (AUTO) 15.4 % (20.5-51.5); MEAN CORPUSCULAR HEMOGLOBIN 28 pg (27-31); MEAN CORPUSCULAR HGB CONC 32 % (32-36); MEAN CORPUSCULAR VOLUME 89 fL (79.0-98.0); MONOCYTES # (AUTO) 0.5 K/uL (0.0-1.0); NEUTROPHILS # (AUTO) 4.2 K/uL (1.8-7.7); NEUTROPHILS % (AUTO) 70.9 % (40.0-70.0); PLATELET COUNT (AUTO) 325 K/uL (130-430); RED BLOOD CELL COUNT(AUTO) 2.72 MIL/uL (4.2-6.2); RED CELL DISTRIBUTION WIDTH 17.9 % (9.0-15.0); WHITE BLOOD COUNT (AUTO) 5.9 K/uL (4.8-10.8)
[2019-07-10 07:55] VITALS: BP_SYST 108
[2019-07-10] MEDS ORDERED: VANCOMYCIN HCL 500 MG in NS 100 ML IV SCH (09:00)
[2019-07-10] MEDS: FERROUS SULFATE 300 MG/5 ML UDC GT SCH (09:12)
[2019-07-10] MEDS: MULTIVITS,CA,MINERALS/IRON/FA 1 TABLET GT SCH (09:12)
[2019-07-10] MEDS: AMIKACIN SULFATE 350 MG in D5W 100 ML IV SCH (09:12)
[2019-07-10] MEDS: LANSOPRAZOLE 30 MG CAPSULE.DR GT SCH (09:12)
[2019-07-10] MEDS: ASCORBIC ACID 500 MG TABLET GT SCH ×2 (09:13→21:05)
[2019-07-10] MEDS: DOCUSATE SODIUM 100 MG/10 ML UDC GT SCH (09:13)
[2019-07-10] MEDS: CHOLECALCIFEROL (VITAMIN D3) 2,000 UNIT TABLET GT SCH (09:13)
[2019-07-10] MEDS: BALSAM PERU/CASTOR OIL 60 GM OINT...G. TP SCH (09:14)
[2019-07-10 12:31] VITALS: BP_SYST 117
[2019-07-10] MEDS: D5W 1,000 ML IV SCH (15:07)
[2019-07-10 17:00] VITALS: BP_SYST 123
[2019-07-10 20:05] VITALS: BP_SYST 106
[2019-07-10] MEDS ORDERED: MUPIROCIN 2% TOPICAL OINTMENT 22 GM TP SCH (21:00)
[2019-07-10] MEDS: ATORVASTATIN 20 MG TABLET GT SCH (21:05)
[2019-07-11 00:19] VITALS: BP_SYST 138
[2019-07-11 05:38] LABS: BASOPHILS # (AUTO) 0.1 K/uL (0.0-0.2); BASOPHILS % (AUTO) 1.4 % (0.0-2.0); EOSINOPHILS # (AUTO) 0.2 K/uL (0.0-0.4); EOSINOPHILS % (AUTO) 4.5 % (0.0-4.0); HEMATOCRIT 25.4 % (36-54); HEMOGLOBIN 8.6 g/dL (14.0-18.0); LYMPHOCYTES # (AUTO) 0.9 K/uL (1.0-5.5); LYMPHOCYTES % (AUTO) 19.7 % (20.5-51.5); MEAN CORPUSCULAR HEMOGLOBIN 30 pg (27-31); MEAN CORPUSCULAR HGB CONC 34 % (32-36); MEAN CORPUSCULAR VOLUME 89 fL (79.0-98.0); MONOCYTES # (AUTO) 0.4 K/uL (0.0-1.0); MONOCYTES % (AUTO) 9.2 % (1.7-9.3); NEUTROPHILS # (AUTO) 3.1 K/uL (1.8-7.7); NEUTROPHILS % (AUTO) 65.2 % (40.0-70.0); PLATELET COUNT (AUTO) 324 K/uL (130-430); RED BLOOD CELL COUNT(AUTO) 2.86 MIL/uL (4.2-6.2); RED CELL DISTRIBUTION WIDTH 17.8 % (9.0-15.0); WHITE BLOOD COUNT (AUTO) 4.8 K/uL (4.8-10.8)
[2019-07-11 05:59] LABS: ALANINE AMINOTRANSFERASE 32 U/L (12-78); ALBUMIN 2.1 g/dL (3.4-4.8); ANION GAP 5 (5-15); ASPARTATE AMINOTRANSFERASE 19 U/L (10-37); CALCIUM 8.7 mg/dL (8.4-11.0); CHLORIDE 98 mmol/L (98-107); CREATININE 0.66 mg/dL (0.55-1.30); GLUCOSE 98 mg/dL (70-99); POTASSIUM 4.1 mmol/L (3.5-5.1); SODIUM SERUM 135 mmol/L (136-145); TOTAL BILIRUBIN 0.3 mg/dL (0.0-1.0); UREA NITROGEN, BLOOD 47 mg/dL (8-21)
[2019-07-11 08:00] VITALS: BP_SYST 102
[2019-07-11] MEDS: BALSAM PERU/CASTOR OIL 60 GM OINT...G. TP SCH (09:45)
[2019-07-11] MEDS: CHOLECALCIFEROL (VITAMIN D3) 2,000 UNIT TABLET GT SCH (09:46)
[2019-07-11] MEDS: FERROUS SULFATE 300 MG/5 ML UDC GT SCH (09:46)
[2019-07-11] MEDS: MULTIVITS,CA,MINERALS/IRON/FA 1 TABLET GT SCH (09:46)
[2019-07-11] MEDS: ASCORBIC ACID 500 MG TABLET GT SCH ×2 (09:46→20:15)
[2019-07-11] MEDS: DOCUSATE SODIUM 100 MG/10 ML UDC GT SCH (09:46)
[2019-07-11] MEDS: LANSOPRAZOLE 30 MG CAPSULE.DR GT SCH (09:46)
[2019-07-11 12:33] VITALS: BP_SYST 101
[2019-07-11] MEDS: D5W 1,000 ML IV SCH (15:50)
[2019-07-11 16:45] VITALS: BP_SYST 110
[2019-07-11] MEDS: ATORVASTATIN 20 MG TABLET GT SCH (20:15)
[2019-07-11 20:20] VITALS: BP_SYST 113
[2019-07-12 00:51] VITALS: BP_SYST 115
[2019-07-12] MEDS: BALSAM PERU/CASTOR OIL 60 GM OINT...G. TP SCH (05:06)
[2019-07-12] MEDS: MENTHOL/ZINC OXIDE 113 GM OINT. TP PRN (05:06)
[2019-07-12 08:00] VITALS: BP_SYST 104
[2019-07-12] MEDS: CHOLECALCIFEROL (VITAMIN D3) 2,000 UNIT TABLET GT SCH (09:55)
[2019-07-12] MEDS: MULTIVITS,CA,MINERALS/IRON/FA 1 TABLET GT SCH (09:55)
[2019-07-12] MEDS: LANSOPRAZOLE 30 MG CAPSULE.DR GT SCH (09:55)
[2019-07-12] MEDS: FERROUS SULFATE 300 MG/5 ML UDC GT SCH (09:55)
[2019-07-12] MEDS: DOCUSATE SODIUM 100 MG/10 ML UDC GT SCH (09:55)
[2019-07-12] MEDS: ASCORBIC ACID 500 MG TABLET GT SCH ×2 (09:56→20:30)
[2019-07-12 12:36] VITALS: BP_SYST 131
[2019-07-12] MEDS: D5W 1,000 ML IV SCH (14:41)
[2019-07-12 16:56] VITALS: BP_SYST 100
[2019-07-12 17:02] VITALS: BP_SYST 100
[2019-07-12 20:00] VITALS: BP_SYST 118
[2019-07-12] MEDS: ATORVASTATIN 20 MG TABLET GT SCH (20:30)
[2019-07-13 00:47] VITALS: BP_SYST 112
[2019-07-13 08:00] VITALS: BP_SYST 141
[2019-07-13] MEDS: MULTIVITS,CA,MINERALS/IRON/FA 1 TABLET GT SCH (08:05)
[2019-07-13] MEDS: DOCUSATE SODIUM 100 MG/10 ML UDC GT SCH (08:05)
[2019-07-13] MEDS: FERROUS SULFATE 300 MG/5 ML UDC GT SCH (08:05)
[2019-07-13] MEDS: LANSOPRAZOLE 30 MG CAPSULE.DR GT SCH (08:05)
[2019-07-13] MEDS: ASCORBIC ACID 500 MG TABLET GT SCH ×2 (08:05→21:03)
[2019-07-13] MEDS: CHOLECALCIFEROL (VITAMIN D3) 2,000 UNIT TABLET GT SCH (08:05)
[2019-07-13] MEDS: BALSAM PERU/CASTOR OIL 60 GM OINT...G. TP SCH (08:06)
[2019-07-13 12:17] VITALS: BP_SYST 124
[2019-07-13] MEDS: D5W 1,000 ML IV SCH (14:37)
[2019-07-13 16:52] VITALS: BP_SYST 154
[2019-07-13 21:01] VITALS: BP_SYST 105
[2019-07-13] MEDS: ATORVASTATIN 20 MG TABLET GT SCH (21:03)
[2019-07-14 00:26] VITALS: BP_SYST 141
[2019-07-14 07:13] LABS: HEMATOCRIT 25.7 % (36-54); HEMOGLOBIN 8.2 g/dL (14.0-18.0); MEAN CORPUSCULAR HEMOGLOBIN 29 pg (27-31); MEAN CORPUSCULAR HGB CONC 32 % (32-36); MEAN CORPUSCULAR VOLUME 90 fL (79.0-98.0); PLATELET COUNT (AUTO) 272 K/uL (130-430); RED BLOOD CELL COUNT(AUTO) 2.85 MIL/uL (4.2-6.2); WHITE BLOOD COUNT (AUTO) 7.2 K/uL (4.8-10.8)
[2019-07-14 07:32] LABS: BAND % (MANUAL) 7 % (0-6); BASOPHILS % (MANUAL) 0 % (0-2); EOSINOPHILS % (MANUAL) 2 % (0-7); LYMPHOCYTES % (MANUAL) 13 % (20-46); MONOCYTES % (MANUAL) 6 % (0-11)
[2019-07-14 07:37] LABS: ALANINE AMINOTRANSFERASE 38 U/L (12-78); ALBUMIN 2.2 g/dL (3.4-4.8); ANION GAP 7 (5-15); ASPARTATE AMINOTRANSFERASE 27 U/L (10-37); CALCIUM 8.6 mg/dL (8.4-11.0); CHLORIDE 101 mmol/L (98-107); CREATININE 0.63 mg/dL (0.55-1.30); GLUCOSE 110 mg/dL (70-99); SODIUM SERUM 137 mmol/L (136-145); TOTAL BILIRUBIN 0.3 mg/dL (0.0-1.0); UREA NITROGEN, BLOOD 46 mg/dL (8-21)
[2019-07-14 07:39] VITALS: BP_SYST 104
[2019-07-14] MEDS: DOCUSATE SODIUM 100 MG/10 ML UDC GT SCH (08:26)
[2019-07-14] MEDS: LANSOPRAZOLE 30 MG CAPSULE.DR GT SCH (08:26)
[2019-07-14] MEDS: FERROUS SULFATE 300 MG/5 ML UDC GT SCH (08:26)
[2019-07-14] MEDS: CHOLECALCIFEROL (VITAMIN D3) 2,000 UNIT TABLET GT SCH (08:27)
[2019-07-14] MEDS: BALSAM PERU/CASTOR OIL 60 GM OINT...G. TP SCH (08:27)
[2019-07-14] MEDS: MULTIVITS,CA,MINERALS/IRON/FA 1 TABLET GT SCH (08:27)
[2019-07-14] MEDS: ASCORBIC ACID 500 MG TABLET GT SCH ×2 (08:27→21:01)
[2019-07-14 12:32] VITALS: BP_SYST 101
[2019-07-14] MEDS: D5W 1,000 ML IV SCH (15:00)
[2019-07-14 16:31] VITALS: BP_SYST 107
[2019-07-14 20:00] VITALS: BP_SYST 141
[2019-07-14] MEDS: ATORVASTATIN 20 MG TABLET GT SCH (21:01)
[2019-07-14 21:20] VITALS: BP_SYST 141
[2019-07-15 01:29] VITALS: BP_SYST 114
[2019-07-15] MEDS: D5W 1,000 ML IV SCH (01:34)
[2019-07-15 07:55] VITALS: BP_SYST 111
[2019-07-15 08:00] VITALS: BP_SYST 111
[2019-07-15] MEDS: FERROUS SULFATE 300 MG/5 ML UDC GT SCH (09:16)
[2019-07-15] MEDS: ASCORBIC ACID 500 MG TABLET GT SCH ×2 (09:17→21:21)
[2019-07-15] MEDS: CHOLECALCIFEROL (VITAMIN D3) 2,000 UNIT TABLET GT SCH (09:17)
[2019-07-15] MEDS: MULTIVITS,CA,MINERALS/IRON/FA 1 TABLET GT SCH (09:17)
[2019-07-15] MEDS: DOCUSATE SODIUM 100 MG/10 ML UDC GT SCH (09:17)
[2019-07-15] MEDS: LANSOPRAZOLE 30 MG CAPSULE.DR GT SCH (09:17)
[2019-07-15] MEDS: BALSAM PERU/CASTOR OIL 60 GM OINT...G. TP SCH (09:18)
[2019-07-15 12:38] VITALS: BP_SYST 110
[2019-07-15 17:04] VITALS: BP_SYST 109
[2019-07-15 20:00] VITALS: BP_SYST 104
[2019-07-15] MEDS: ATORVASTATIN 20 MG TABLET GT SCH (21:21)
[2019-07-15] MEDS: INSULIN REGULAR, HUMAN 100 UNITS/ML, 10 ML VIAL (humuLIN R) SUBCUT PRN (21:26)
[2019-07-16] VITALS (7 sets, daily range): BP systolic 104–136
[2019-07-16] MEDS: INSULIN REGULAR, HUMAN 100 UNITS/ML, 10 ML VIAL (humuLIN R) SUBCUT PRN (06:02)
[2019-07-16] MEDS: DOCUSATE SODIUM 100 MG/10 ML UDC GT SCH (09:54)
[2019-07-16] MEDS: FERROUS SULFATE 300 MG/5 ML UDC GT SCH (09:54)
[2019-07-16] MEDS: LANSOPRAZOLE 30 MG CAPSULE.DR GT SCH (09:54)
[2019-07-16] MEDS: ASCORBIC ACID 500 MG TABLET GT SCH ×2 (09:54→22:00)
[2019-07-16] MEDS: MULTIVITS,CA,MINERALS/IRON/FA 1 TABLET GT SCH (09:54)
[2019-07-16] MEDS: CHOLECALCIFEROL (VITAMIN D3) 2,000 UNIT TABLET GT SCH (09:55)
[2019-07-16] MEDS: BALSAM PERU/CASTOR OIL 60 GM OINT...G. TP SCH (09:56)
[2019-07-16] MEDS: D5W 1,000 ML IV SCH (18:15)
[2019-07-16] MEDS: ATORVASTATIN 20 MG TABLET GT SCH (22:00)
[2019-07-17 00:30] VITALS: BP_SYST 103
[2019-07-17] MEDS: INSULIN REGULAR, HUMAN 100 UNITS/ML, 10 ML VIAL (humuLIN R) SUBCUT PRN (06:18)
[2019-07-17 08:00] VITALS: BP_SYST 120
[2019-07-17] MEDS: FERROUS SULFATE 300 MG/5 ML UDC GT SCH (09:20)
[2019-07-17] MEDS: DOCUSATE SODIUM 100 MG/10 ML UDC GT SCH (09:21)
[2019-07-17] MEDS: MULTIVITS,CA,MINERALS/IRON/FA 1 TABLET GT SCH (09:21)
[2019-07-17] MEDS: LANSOPRAZOLE 30 MG CAPSULE.DR GT SCH (09:21)
[2019-07-17] MEDS: ASCORBIC ACID 500 MG TABLET GT SCH ×2 (09:21→21:47)
[2019-07-17] MEDS: CHOLECALCIFEROL (VITAMIN D3) 2,000 UNIT TABLET GT SCH (09:22)
[2019-07-17] MEDS: BALSAM PERU/CASTOR OIL 60 GM OINT...G. TP SCH (09:24)
[2019-07-17 12:00] VITALS: BP_SYST 163
[2019-07-17 16:25] VITALS: BP_SYST 132
[2019-07-17] MEDS: D5W 1,000 ML IV SCH (17:45)
[2019-07-17] MEDS: ATORVASTATIN 20 MG TABLET GT SCH (21:47)
[2019-07-18 01:27] VITALS: BP_SYST 111
[2019-07-18 08:46] VITALS: BP_SYST 124
[2019-07-18] MEDS: MULTIVITS,CA,MINERALS/IRON/FA 1 TABLET GT SCH (10:17)
[2019-07-18] MEDS: DOCUSATE SODIUM 100 MG/10 ML UDC GT SCH (10:17)
[2019-07-18] MEDS: ASCORBIC ACID 500 MG TABLET GT SCH ×2 (10:17→21:13)
[2019-07-18] MEDS: FERROUS SULFATE 300 MG/5 ML UDC GT SCH (10:17)
[2019-07-18] MEDS: LANSOPRAZOLE 30 MG CAPSULE.DR GT SCH (10:18)
[2019-07-18] MEDS: CHOLECALCIFEROL (VITAMIN D3) 2,000 UNIT TABLET GT SCH (10:18)
[2019-07-18] MEDS: BALSAM PERU/CASTOR OIL 60 GM OINT...G. TP SCH (10:18)
[2019-07-18 12:18] VITALS: BP_SYST 110
[2019-07-18] MEDS: D5W 1,000 ML IV SCH (16:26)
[2019-07-18 16:38] VITALS: BP_SYST 113
[2019-07-18 20:00] VITALS: BP_SYST 120
[2019-07-18] MEDS: ATORVASTATIN 20 MG TABLET GT SCH (21:13)
[2019-07-18 22:59] VITALS: BP_SYST 122
[2019-07-19 08:02] VITALS: BP_SYST 120
[2019-07-19] MEDS: BALSAM PERU/CASTOR OIL 60 GM OINT...G. TP SCH (09:00)
[2019-07-19] MEDS: DOCUSATE SODIUM 100 MG/10 ML UDC GT SCH (10:05)
[2019-07-19] MEDS: MULTIVITS,CA,MINERALS/IRON/FA 1 TABLET GT SCH (10:06)
[2019-07-19] MEDS: CHOLECALCIFEROL (VITAMIN D3) 2,000 UNIT TABLET GT SCH (10:06)
[2019-07-19] MEDS: ASCORBIC ACID 500 MG TABLET GT SCH ×2 (10:06→21:01)
[2019-07-19] MEDS: FERROUS SULFATE 300 MG/5 ML UDC GT SCH (10:06)
[2019-07-19] MEDS: LANSOPRAZOLE 30 MG CAPSULE.DR GT SCH (10:06)
[2019-07-19 12:52] VITALS: BP_SYST 100
[2019-07-19 16:38] VITALS: BP_SYST 116
[2019-07-19] MEDS: D5W 1,000 ML IV SCH (17:31)
[2019-07-19 20:30] VITALS: BP_SYST 158
[2019-07-19] MEDS: ATORVASTATIN 20 MG TABLET GT SCH (21:01)
[2019-07-20 00:10] VITALS: BP_SYST 153
[2019-07-20 07:45] LABS: ALANINE AMINOTRANSFERASE 33 U/L (12-78); ALBUMIN 2.5 g/dL (3.4-4.8); ANION GAP 5 (5-15); ASPARTATE AMINOTRANSFERASE 23 U/L (10-37); CALCIUM 8.5 mg/dL (8.4-11.0); CHLORIDE 99 mmol/L (98-107); GLUCOSE 84 mg/dL (70-99); POTASSIUM 3.8 mmol/L (3.5-5.1); SODIUM SERUM 133 mmol/L (136-145); TOTAL BILIRUBIN 0.4 mg/dL (0.0-1.0); UREA NITROGEN, BLOOD 35 mg/dL (8-21)
[2019-07-20 07:49] LABS: BASOPHILS % (AUTO) 0.7 % (0.0-2.0); EOSINOPHILS # (AUTO) 0.2 K/uL (0.0-0.4); EOSINOPHILS % (AUTO) 3.3 % (0.0-4.0); HEMATOCRIT 28.2 % (36-54); HEMOGLOBIN 8.8 g/dL (14.0-18.0); LYMPHOCYTES # (AUTO) 0.8 K/uL (1.0-5.5); LYMPHOCYTES % (AUTO) 12.3 % (20.5-51.5); MEAN CORPUSCULAR HEMOGLOBIN 28 pg (27-31); MEAN CORPUSCULAR HGB CONC 31 % (32-36); MEAN CORPUSCULAR VOLUME 89 fL (79.0-98.0); MONOCYTES # (AUTO) 0.7 K/uL (0.0-1.0); MONOCYTES % (AUTO) 10.1 % (1.7-9.3); NEUTROPHILS # (AUTO) 4.8 K/uL (1.8-7.7); NEUTROPHILS % (AUTO) 73.6 % (40.0-70.0); PLATELET COUNT (AUTO) 239 K/uL (130-430); RED BLOOD CELL COUNT(AUTO) 3.15 MIL/uL (4.2-6.2); RED CELL DISTRIBUTION WIDTH 17.3 % (9.0-15.0); WHITE BLOOD COUNT (AUTO) 6.5 K/uL (4.8-10.8)
[2019-07-20 08:00] VITALS: BP_SYST 105
[2019-07-20] MEDS: DOCUSATE SODIUM 100 MG/10 ML UDC GT SCH (09:00)
[2019-07-20] MEDS: ASCORBIC ACID 500 MG TABLET GT SCH ×2 (09:00→21:14)
[2019-07-20] MEDS: LANSOPRAZOLE 30 MG CAPSULE.DR GT SCH (09:00)
[2019-07-20] MEDS: FERROUS SULFATE 300 MG/5 ML UDC GT SCH (09:00)
[2019-07-20] MEDS: MULTIVITS,CA,MINERALS/IRON/FA 1 TABLET GT SCH (09:00)
[2019-07-20] MEDS: CHOLECALCIFEROL (VITAMIN D3) 2,000 UNIT TABLET GT SCH (09:00)
[2019-07-20] MEDS ORDERED: SILVER NITRATE APPLICATOR 1 STICK STICK..EA. TP ONE (11:15)
[2019-07-20 12:30] VITALS: BP_SYST 99
[2019-07-20 16:33] VITALS: BP_SYST 98
[2019-07-20] MEDS: D5W 1,000 ML IV SCH (17:29)
[2019-07-20] MEDS: BALSAM PERU/CASTOR OIL 60 GM OINT...G. TP SCH (17:31)
[2019-07-20 20:30] VITALS: BP_SYST 105
[2019-07-20] MEDS: ATORVASTATIN 20 MG TABLET GT SCH (21:15)
[2019-07-21 00:46] VITALS: BP_SYST 113
[2019-07-21 08:20] VITALS: BP_SYST 119
[2019-07-21 08:35] VITALS: BP_SYST 119
[2019-07-21] MEDS: FERROUS SULFATE 300 MG/5 ML UDC GT SCH (09:57)
[2019-07-21] MEDS: MULTIVITS,CA,MINERALS/IRON/FA 1 TABLET GT SCH (09:57)
[2019-07-21] MEDS: LANSOPRAZOLE 30 MG CAPSULE.DR GT SCH (09:57)
[2019-07-21] MEDS: CHOLECALCIFEROL (VITAMIN D3) 2,000 UNIT TABLET GT SCH (09:57)
[2019-07-21] MEDS: DOCUSATE SODIUM 100 MG/10 ML UDC GT SCH (09:57)
[2019-07-21] MEDS: ASCORBIC ACID 500 MG TABLET GT SCH ×2 (09:57→21:03)
[2019-07-21] MEDS: BALSAM PERU/CASTOR OIL 60 GM OINT...G. TP SCH (09:58)
[2019-07-21 12:36] VITALS: BP_SYST 106
[2019-07-21 14:05] VITALS: BP_SYST 112
[2019-07-21] MEDS: D5W 1,000 ML IV SCH (15:00)
[2019-07-21 16:41] VITALS: BP_SYST 102
[2019-07-21] MEDS: ATORVASTATIN 20 MG TABLET GT SCH (21:03)
[2019-07-22 00:44] VITALS: BP_SYST 134
[2019-07-22 07:58] VITALS: BP_SYST 110
[2019-07-22] MEDS: FERROUS SULFATE 300 MG/5 ML UDC GT SCH (10:50)
[2019-07-22] MEDS: DOCUSATE SODIUM 100 MG/10 ML UDC GT SCH (10:50)
[2019-07-22] MEDS: MULTIVITS,CA,MINERALS/IRON/FA 1 TABLET GT SCH (10:50)
[2019-07-22] MEDS: LANSOPRAZOLE 30 MG CAPSULE.DR GT SCH (10:51)
[2019-07-22] MEDS: ASCORBIC ACID 500 MG TABLET GT SCH ×2 (10:51→21:30)
[2019-07-22] MEDS: CHOLECALCIFEROL (VITAMIN D3) 2,000 UNIT TABLET GT SCH (10:51)
[2019-07-22] MEDS: BALSAM PERU/CASTOR OIL 60 GM OINT...G. TP SCH (10:53)
[2019-07-22 12:28] VITALS: BP_SYST 131
[2019-07-22 15:57] VITALS: BP_SYST 119
[2019-07-22 17:07] VITALS: BP_SYST 119
[2019-07-22] MEDS: D5W 1,000 ML IV SCH (17:10)
[2019-07-22 21:30] VITALS: BP_SYST 108
[2019-07-22] MEDS: ATORVASTATIN 20 MG TABLET GT SCH (21:31)
[2019-07-23 01:39] VITALS: BP_SYST 107
[2019-07-23] MEDS: BALSAM PERU/CASTOR OIL 60 GM OINT...G. TP SCH ×2 (06:20→10:34)
[2019-07-23 07:52] LABS: BASOPHILS % (AUTO) 0.7 % (0.0-2.0); EOSINOPHILS # (AUTO) 0.2 K/uL (0.0-0.4); EOSINOPHILS % (AUTO) 3.7 % (0.0-4.0); HEMATOCRIT 27.9 % (36-54); HEMOGLOBIN 8.7 g/dL (14.0-18.0); LYMPHOCYTES # (AUTO) 0.9 K/uL (1.0-5.5); MEAN CORPUSCULAR HEMOGLOBIN 28 pg (27-31); MEAN CORPUSCULAR HGB CONC 31 % (32-36); MEAN CORPUSCULAR VOLUME 89 fL (79.0-98.0); MONOCYTES # (AUTO) 0.7 K/uL (0.0-1.0); MONOCYTES % (AUTO) 13.1 % (1.7-9.3); NEUTROPHILS # (AUTO) 3.5 K/uL (1.8-7.7); NEUTROPHILS % (AUTO) 65.5 % (40.0-70.0); PLATELET COUNT (AUTO) 223 K/uL (130-430); RED BLOOD CELL COUNT(AUTO) 3.13 MIL/uL (4.2-6.2); RED CELL DISTRIBUTION WIDTH 17.1 % (9.0-15.0); WHITE BLOOD COUNT (AUTO) 5.3 K/uL (4.8-10.8)
[2019-07-23 08:02] VITALS: BP_SYST 111
[2019-07-23 08:09] LABS: ALANINE AMINOTRANSFERASE 31 U/L (12-78); ALBUMIN 2.4 g/dL (3.4-4.8); ANION GAP 6 (5-15); ASPARTATE AMINOTRANSFERASE 21 U/L (10-37); CALCIUM 8.4 mg/dL (8.4-11.0); CHLORIDE 105 mmol/L (98-107); CREATININE 0.67 mg/dL (0.55-1.30); GLUCOSE 99 mg/dL (70-99); SODIUM SERUM 142 mmol/L (136-145); TOTAL BILIRUBIN 0.3 mg/dL (0.0-1.0); UREA NITROGEN, BLOOD 33 mg/dL (8-21)
[2019-07-23] MEDS: LANSOPRAZOLE 30 MG CAPSULE.DR GT SCH (10:27)
[2019-07-23] MEDS: MULTIVITS,CA,MINERALS/IRON/FA 1 TABLET GT SCH (10:27)
[2019-07-23] MEDS: FERROUS SULFATE 300 MG/5 ML UDC GT SCH (10:27)
[2019-07-23] MEDS: DOCUSATE SODIUM 100 MG/10 ML UDC GT SCH (10:27)
[2019-07-23] MEDS: ASCORBIC ACID 500 MG TABLET GT SCH (10:28)
[2019-07-23] MEDS: CHOLECALCIFEROL (VITAMIN D3) 2,000 UNIT TABLET GT SCH (10:28)
[2019-07-23 11:51] VITALS: BP_SYST 114
[2019-07-23 13:04] VITALS: BP_SYST 116
[2019-07-23 16:00] VITALS: BP_SYST 134
== END 2019-07-23 16:35 | DRG 870 ==
LOC: SED 23:17 → STU 06-24 02:14
PROVIDERS: ADMIT Internal Medicine; ATTEND Internal Medicine
PROC: 5A1955Z Respiratory Ventilation, Greater than 96 Consecutive Hours (ICD-10-PCS; principal; 2019-06-23)
PROC: 0D20XUZ Change Feeding Device in Upper Intestinal Tract, External Approach (ICD-10-PCS; 2019-06-25)
PROC: 06HY33Z Insertion of Infusion Device into Lower Vein, Percutaneous Approach (ICD-10-PCS; 2019-07-02)
PROC: 0D20XUZ Change Feeding Device in Upper Intestinal Tract, External Approach (ICD-10-PCS; 2019-07-05)
DX: A41.02 Sepsis due to Methicillin resistant Staphylococcus aureus (principal); L89.154 Pressure ulcer of sacral region, stage 4; J18.9 Pneumonia, unspecified organism; N39.0 Urinary tract infection, site not specified; J96.10 Chronic respiratory failure, unspecified whether with hypoxia or hypercapnia; G93.49 Other encephalopathy; J44.0 Chronic obstructive pulmonary disease with (acute) lower respiratory infection; K94.23 Gastrostomy malfunction; E87.0 Hyperosmolality and hypernatremia; Z99.11 Dependence on respirator [ventilator] status; D63.8 Anemia in other chronic diseases classified elsewhere; E11.22 Type 2 diabetes mellitus with diabetic chronic kidney disease; E78.5 Hyperlipidemia, unspecified; F03.90 Unspecified dementia, unspecified severity, without behavioral disturbance, psychotic disturbance, mood disturbance, and anxiety; N18.9 Chronic kidney disease, unspecified; R13.10 Dysphagia, unspecified; R31.0 Gross hematuria; I12.9 Hypertensive chronic kidney disease with stage 1 through stage 4 chronic kidney disease, or unspecified chronic kidney disease; B96.4 Proteus (mirabilis) (morganii) as the cause of diseases classified elsewhere; D64.9 Anemia, unspecified; Y83.3 Surgical operation with formation of external stoma as the cause of abnormal reaction of the patient, or of later complication, without mention of misadventure at the time of the procedure; Y92.89 Other specified places as the place of occurrence of the external cause; Z86.73 Personal history of transient ischemic attack (TIA), and cerebral infarction without residual deficits; Z74.01 Bed confinement status
CPT/HCPCS: 36415; 71045; 74240-TC; 80048; 80053; 80150; 80202-TC; 81000-TC; 82272; 82962; 83605; 84484; 85007; 85025; 85027; 85610-TC; 85730-TC; 86704; 86706; 86803; 87040-TC; 87070-TC; 87081; 87086; 87101; 87186-TC; 87205-TC; 87340; 93005; 94002; 94003; 94640; 94760; 96365; 96367; 99285; C1751; G0378; J0278; J1815; J1956; J2543; J3370; J7030; J7050; J7060; Q9963